=== PATIENT | male | born 1945 ===

== ENCOUNTER 2021-09-12 18:29 | Inpatient (IN) | payer OTHER, MEDICARE ==
[~2021-09-12] VITALS: Ht 180.3 cm; Wt 76.9 kg
[2021-09-12 18:57] LABS: PCO2 Arterial 92.5 mmHg (35-45); pH Blood Arterial 6.85 (7.35-7.45)
[2021-09-12 18:58] LABS: PO2 Arterial >500 mmHg (80-100)
[2021-09-12 19:04] LABS: Source, Urine Clean Catch
[2021-09-12 19:07] LABS: Bilirubin, Urine Neg (Neg); Blood, Urine 2+ (Neg); Glucose Qualitative, Urine 4+ (Neg); Ketones, Urine Neg (Neg); Leukocyte Esterase, Urine Neg (Neg); Nitrite, Urine Neg (Neg); Protein, Urine 3+ (Neg); Urobilinogen, Urine NORM (Normal)
[2021-09-12 19:08] LABS: Hematocrit 44.1 % (37.0-53.0); Hemoglobin 13.7 g/dL (13.5-17.5); Mean Corpuscular HGB 30.7 pg (26.0-34.0); Mean Corpuscular HGB Conc 31.1 g/dL (31.5-36.5); Mean Corpuscular Volume 99 fL (80-100); Mean Platelet Volume 11.8 fL (9.1-12.4); NRBC ABSOLUTE 0.06 K/mm3 (0.00-0.02); NRBC Auto 0.6 /100 WBC (0.0-0.2); Platelet Count 115 K/mm3 (150-400); RDW Coefficient Variation 13.4 % (11.7-14.2); RDW Standard Deviation 48.7 fL (35.1-46.3); Red Blood Cell Count 4.46 M/mm3 (4.30-5.90); White Blood Cell Count 10.45 K/mm3 (4.00-11.30)
[2021-09-12 19:18] LABS: Appearance, Urine Hazy (Clear); Color, Urine Pale Yellow (P-Yellow)
[2021-09-12 19:19] LABS: Amorphous Light (0-Heavy); Bacteria Few /hpf; Mucus Light (0-Heavy); Squamous Epithelial Cells Rare /hpf (Few); White Blood Cells, Urine 0-2 /hpf (0-5)
[2021-09-12 19:20] LABS: International Normalized Ratio 1.16; Prothrombin Time Results 12.1 Sec (9.7-11.5)
[2021-09-12 19:29] LABS: Albumin, Blood 3.3 g/dL (3.4-5.0); Albumin/Globulin Ratio 0.9 (0.8-1.8); Bilirubin, Total 0.4 mg/dL (0.1-1.0); Bun/Creatinine Ratio 14.9 (12.0-20.0); Calcium, Blood 9.2 mg/dL (8.5-10.1); Creatinine, Blood 1.61 mg/dL (0.60-1.20); Globulin, Blood 3.5 g/dL (2.2-4.0); Potassium, Blood 3.8 mmol/L (3.5-5.5); Total Protein, Blood 6.8 g/dL (6.4-8.2)
[2021-09-12 20:03] LABS: PO2 Arterial 274 mmHg (80-100); pH Blood Arterial 7.06 (7.35-7.45)
[2021-09-12 20:04] LABS: PCO2 Arterial 80.9 mmHg (35-45)
[2021-09-12 20:04] LABS: BAND PERCENT MAN 8 % (0-8); BASOPHILS PERCENT MAN 0 % (0-2); EOSINOPHILS ABSOLUTE MAN 0.52 K/mm3 (0.00-0.68); EOSINOPHILS PERCENT MAN 5 % (0-6); LYMPHOCYTES % ATYPICAL MANUAL 7 % (0-0); LYMPHOCYTES ABSOLUTE MAN 5.12 K/mm3 (0.84-5.20); LYMPHOCYTES PERCENT MAN 42 % (21-46); METAMYELOCYTE ABSOLUTE MAN 0.62 K/mm3 (0.00-0.00); METAMYELOCYTE PERCENT MAN 6 % (0-0); MONOCYTES PERCENT MAN 2 % (4-13); NEUTROPHILS ABSOLUTE MAN 3.97 K/mm3 (1.96-9.15); SEG NEUTROPHILS PERCENT MAN 30 % (41-73); TOTAL CELLS COUNTED 100
[2021-09-12 21:10] LABS: Calcium, Ionized (POC) 1.22 mmol/L (1.10-1.46); Chloride (POC) 101 mmol/L (98-108); Creatinine (POC) 1.5 mg/dL (0.8-1.3); Glucose (ISTAT POC) 239 mg/dL (70-99); Hemoglobin (POC) 15.6 g/dL (13.5-17.5); Potassium (POC) 4.7 mmol/L (3.5-5.5); Sodium (POC) 140 mmol/L (135-148); Total CO2 (POC) 25 mmol/L (21-32)
[2021-09-12 22:08] LABS: Base Excess Venous -1.4 mmol/L; Bicarbonate Venous 21.2 mmol/L (24.0-30.0); PCO2 Venous 73.2 mmHg (38-42); PO2 Venous 45.7 mmHg (38-42); pH Blood Venous 7.18 (7.34-7.37)
[2021-09-13 03:17] LABS: PCO2 Arterial 46.5 mmHg (35-45); PO2 Arterial 85.8 mmHg (80-100); pH Blood Arterial 7.35 (7.35-7.45)
--- NOTE | 2021-09-13 03:20 | NUR ---
FAMILY CALL TO SON YUN REGARDING PT STATUS. HYPOTENSION( STARTING SECOND MEDICATIONS TO ELEVATED BP), NONRESPONSIVE. NO QUESTIONS FROM SON. CONT FULL CODE.
[2021-09-13 03:22] LABS: BASOPHILS ABSOLUTE AUTO 0.02 K/mm3 (0.00-0.23); BASOPHILS PERCENT AUTO 0 % (0-2); EOSINOPHILS ABSOLUTE AUTO 0.02 K/mm3 (0.00-0.68); EOSINOPHILS PERCENT AUTO 0 % (0-6); Hematocrit 39.9 % (37.0-53.0); Hemoglobin 13.4 g/dL (13.5-17.5); IMMATURE GRAN ABSOLUTE AUTO 0.04 K/mm3 (0.00-0.10); IMMATURE GRAN PERCENT AUTO 1 % (0-1); LYMPHOCYTES ABSOLUTE AUTO 0.54 K/mm3 (0.84-5.20); LYMPHOCYTES PERCENT AUTO 8 % (21-46); MONOCYTES ABSOLUTE AUTO 0.39 K/mm3 (0.16-1.47); MONOCYTES PERCENT AUTO 6 % (4-13); Mean Corpuscular HGB 30.5 pg (26.0-34.0); Mean Corpuscular HGB Conc 33.6 g/dL (31.5-36.5); Mean Platelet Volume 11.3 fL (9.1-12.4); NEUTROPHILS ABSOLUTE AUTO 6.06 K/mm3 (1.96-9.15); NEUTROPHILS PERCENT AUTO 86 % (41-73); NRBC ABSOLUTE 0.02 K/mm3 (0.00-0.02); NRBC Auto 0.3 /100 WBC (0.0-0.2); Platelet Count 121 K/mm3 (150-400); RDW Coefficient Variation 13.5 % (11.7-14.2); RDW Standard Deviation 45.8 fL (35.1-46.3); Red Blood Cell Count 4.39 M/mm3 (4.30-5.90); White Blood Cell Count 7.07 K/mm3 (4.00-11.30)
[2021-09-13 03:25] LABS: Mean Corpuscular Volume 91 fL (80-100)
[2021-09-13 03:38] LABS: Bilirubin, Total 0.9 mg/dL (0.1-1.0); Calcium, Blood 7.8 mg/dL (8.5-10.1); Creatinine, Blood 1.7 mg/dL (0.60-1.20); Potassium, Blood 4.2 mmol/L (3.5-5.5)
--- NOTE | 2021-09-13 06:12 | NUR ---
[id number] Upon arrival to ICU, Propofol was off. Sedation was stopped to get a baseline neuro exam. Pt did not respond to painful stimili, no cough and gag, and unable to follow any commands. Around 2229, pt started to have harsh jerking movement, seizure like activity Ativan was given and medication stopped this movement. Pt received multiple doses of Ativan overnight when this activity occured. During initial assessment, pt did have brisk unequal pupils, left side was at 5 and right side was at 2. Pt also had a large amount of food still inside mouth, did extensive oral care to get most food particles out to prevent aspiration. Resp: pt remains intubated, ETT now at 25 @ gum, settings are 20/550/40/5. Lung sounds are diminished. secretions vann, thick with food particles. Cardiac: (Evan) was contacted multiple times throughout the night due to hypotension and increasing trop levels. Around 0, MD added levophed to help maintain pt MAP >60. Slowly titrating levophed down to achieve MAP goal. HR 90 - 110's, Sinus Rhythm to Tachycardia. Pulses are obtained via doppler. Pt was initially cold with temp as low as 94.4F - warming blanket now off. Currently dobutamine still at maximum, and levophed has been titrated down to 4 mcg/min. GI/: OG to interminttent suction, 1x BM, abbasi remains patent and draining to gravity. BG's remained in the high 200's Integ: scattered abrasions, excoriated sternum due to CPR, coccyx stg 1 pressure sore (mepilex placed), nose has an pressure sore/scab Infusions: propofol, levophed, dobutamine, normal saline, heparin
--- NOTE | 2021-09-13 08:47 | NUR ---
Echocardiogram completed.
--- NOTE | 2021-09-13 11:17 | NUR ---
CARE ASSUMED OF PT AT 0700. PT SEDATED ON PROPOFOL AT 20MCG FOR CONTROL OF SEIZURE ACTIVITY. PT IS ON MECH VENT. AC: 20/550/40%/5. CO2 READING LOW, DR SUMNER IN THIS AM AND GIVEN FULL REPORT; DR SUMNER DECREASED TV TO 450. PT DOES NOT HAVE ANY PURPOSEFUL MOVEMENT. PT HAS MYOCLONIC LIKE JERKING. NO REACTION TO PAIN OTHER THAN INCREASED JERKING. NO GAG/SWALLOW/COUGH. PUPILS 2/3MM REACTIVE. ABSENT PLANTAR REFLEX. PROPOFOL PLACED ON HOLD FOR NEURO ASSESSMENT. WITHIN 15MIN JERKING SIGNIFICANTLY INCREASED, EYES ALSO OPEN W JERKING BUT DO NOT TRACK. DR SUMNER AT BEDSIDE TO EVALUATE PT OFF OF SEDATION. AT THIS TIME PT HAD APPROX 200CC THICK DARK BROWN EMESIS. OGT TUBE REMOVED IT WAS SUSPECTED TO BE CLOGGED. IT HAD BEEN TO LIS. NEW 18F OGT PLACED. OGT ADVANCED ABOUT 10CM AFTER CXR. 400CC DARK BROWN STOMACH CONTENT TO SX CANISTER. DOBUTAMINE AT 20MCG, LEVOPHED AT 4MCG, DECREASED TO 2MCG; TO KEEP MAP >[address] CHRISTINA AT BEDSIDE THIS AM AND GIVEN FULL REPORT. CRITICAL HIGH TROPONIN RESULTS GIVEN TO DR CHRISTINA. ECHO COMPLETED THIS AM. HEP GTT AT 12UNITS. NS AT 100CC/HR. PROPOFOL RESUMED AFTER EMESIS; PT'S HEART RATE ALSO HAD INCREASED FROM 110 TO 130 OFF OF PROPOFOL. LIVESTOCK BREEDER AT BEDSIDE NOW.
--- NOTE | 2021-09-13 11:30 | NUR ---
Pal Care referral received on admit to hospital. EMR reviewed and case conf with staff. Pt with EEG pending due to indications of anoxic brain injury. Sponge Fisherman to review results of EEG with family. Personal Computer Network Engineer has updated family on current status, concerns and plan of care at this time, per notes. Pal Care to reamain available for advanced care planning and s/s management as indicated.
--- NOTE | 2021-09-13 13:59 | NUR ---
Case conference with nursing in ICU. Son in [place] has been in contact and receiving updates. EEG done but results may not be available until tomorrow. Reviewed plan and will remain available.
--- NOTE | 2021-09-13 14:30 | NUR ---
EEG COMPLETE, MAY POSSIBLE BE READ TONIGHT PER TECH. ATIVAN 1MG GIVEN AT END OF EEG JERKING WAS SEVERE AND TECH UNABLE TO COMPLETE END OF EEG D/T SEVERE JERKING MOVEMENT, PT ALSO ALARMING VENT; HIGH PRESSURES. HEART RATE 130'S. NYSTAGMUS PRESENT, SEVERE UPWARD AND DOWNWARD GAZE NOTED. DR SUMNER UPDATED. CENTRAL LINE CONT'S TO OOZ. HEPARIN GTT WAS DECREASED TO 11UNITS. DOPUTAMINE REMAINS AT 20MCG. LEVOPHED AT 2MCG.
[2021-09-13 15:36] LABS: PCO2 Arterial 41.5 mmHg (35-45); PO2 Arterial 69.3 mmHg (80-100); pH Blood Arterial 7.38 (7.35-7.45)
[2021-09-13 17:14] LABS: Hematocrit 37.2 % (37.0-53.0); Hemoglobin 12.9 g/dL (13.5-17.5); Mean Corpuscular HGB 30.9 pg (26.0-34.0); Mean Corpuscular HGB Conc 34.7 g/dL (31.5-36.5); Mean Corpuscular Volume 89 fL (80-100); Mean Platelet Volume 11.4 fL (9.1-12.4); Platelet Count 91 K/mm3 (150-400); RDW Coefficient Variation 13.9 % (11.7-14.2); RDW Standard Deviation 45.5 fL (35.1-46.3); Red Blood Cell Count 4.17 M/mm3 (4.30-5.90); White Blood Cell Count 7.42 K/mm3 (4.00-11.30)
[2021-09-13 17:37] LABS: BAND PERCENT MAN 46 % (0-8); BASOPHILS PERCENT MAN 0 % (0-2); EOSINOPHILS PERCENT MAN 0 % (0-6); LYMPHOCYTES ABSOLUTE MAN 0.74 K/mm3 (0.84-5.20); LYMPHOCYTES PERCENT MAN 10 % (21-46); METAMYELOCYTE ABSOLUTE MAN 0.07 K/mm3 (0.00-0.00); METAMYELOCYTE PERCENT MAN 1 % (0-0); MONOCYTES ABSOLUTE MAN 0.22 K/mm3 (0.16-1.47); MONOCYTES PERCENT MAN 3 % (4-13); MYELOCYTE ABSOLUTE MAN 0.07 K/mm3 (0.00-0.00); MYELOCYTE PERCENT MAN 1 % (0-0); SEG NEUTROPHILS PERCENT MAN 39 % (41-73); TOTAL CELLS COUNTED 100
--- NOTE | 2021-09-13 18:37 | NUR ---
DR CHRISTINA CALLED AT 1600 AND GIVEN UPDATE/TROPONIN RESULTS. DOBUTAMINE TO BE TITRATED DOWN, KEEP MAP >65, MAY INCREASE LEVOPHED NEEDED; PER DR SUMNER. INSULIN GTT STARTED AT 2UNITS AND REMAINS AT 2UNITS. SPUTUM SENT; DARK BROWN/RETANA. LR STARTED AT 75CC/HR, NS AT TKO. MAG 2GM INFUSING. DOPUTAMINE NOW AT 12MCG, LEVOPHED AT 4MCG. DR SUMNER UPDATED. PT'S SON YUN UPDATED THIS AM AND THIS EVENING. PT'S SON DEREK UPDATED TODAY WELL. NO NEURO CHANGES. PT CONT'S TO BREATH OVER VENT, NO PURPOSEFUL MOVEMENT NOTED. OCC MYOCLONIC LIKE JERKING NOTED, WORSE W STIMULATION. PROPOFOL REMAINS AT 20MCG. ATIVAN 1MG GIVEN TWICE THIS SHIFT FOR INCREASED RESP W PEAK ALARM, DESATS 89-90%, INCREASED HT RATE; RESOLVED W ATIVAN.
[2021-09-14 03:49] LABS: pH Blood Arterial 7.42 (7.35-7.45)
[2021-09-14 03:55] LABS: Albumin, Blood 2.6 g/dL (3.4-5.0); Albumin/Globulin Ratio 0.8 (0.8-1.8); Bilirubin, Total 0.6 mg/dL (0.1-1.0); Bun/Creatinine Ratio 16.8 (12.0-20.0); Calcium, Blood 7.6 mg/dL (8.5-10.1); Creatinine, Blood 1.96 mg/dL (0.60-1.20); Globulin, Blood 3.3 g/dL (2.2-4.0); Potassium, Blood 3.4 mmol/L (3.5-5.5); Total Protein, Blood 5.9 g/dL (6.4-8.2)
--- NOTE | 2021-09-14 05:58 | NUR ---
SHIFT SUMMARY: Pt remains intubated and sedated, with no response to verbal and painful stimuli. Still doing extensive oral care and still getting chunks of food out of mouth. Pupils are better, left side still slightly bigger than right, both reacting to light. Ventilator setting remains unchanged overnight, AC/VC(+), settings at 20/450/40%/5. No cough or gag. Lung sounds are diminished. Pt did have an episode of jerking and Ativan was administered immediately which stopped jerking. BP stable, able to titrate Dobutamine off around 2300, Levophed is titrated down to 3 mcg/min. Noticed a small bump starting to rise from pt.'s sternum area - bump was not present at beggining of night custodian. Afebrile. OGT remains on intermittent suction, no output overnight but starting to suction out small amounts of blood clot from OG. Insulin drip is still infusing. No BM. Taylor remains patent and draining to gravity. Skin remains unchanged besides new bump on sternum. q2h turns. Infusions: propofol, heparin, lactated ringers, levophed and insulin. Family: there has been some disagreement between family regarding. pt's wishes and care plan/ treatment. Educated family regarding pt condition, treatments and visitor policy.
--- NOTE | 2021-09-14 09:31 | NUR ---
CARE OF PT ASSUMED AT 0700. PT ON [facility] VENT AC/VC+ 20/450/40%/5. PROPOFOL AT 20MCG. LEVOPHED AT 2MCG AND PLACED ON SB AT 0730 MAP >65. INSULIN GTT AT 2UNITS W BS AROUND 200. HEP GTT AT 9UNITS. PROPOFOL PLACED ON SB FOR NEURO ASSESSMENT. NO PURPOSEFUL MOVEMENT NOTED. ABSENT COUGH/GAG/SWALLOW/PLANTAR/CORNEAL REFLEX. LEFT LEG DID FLEX SLIGHTLY UP WHEN STIMULATED. PUPILS ARE EQUAL AND REACTIVE 3MM. +DOLLS EYES, NO NYSTAGMUS. WILL LEAVE PROPOFOL OFF TOLERATED. DR SUMNER IN TO EVALUATE PT THIS AM. VENT SETTINGS CHANGED TO SPONT 12/7, FIO2 50%. AROUND 0920 BREATHING BECAME VERY LABORED, PT USING ABD/ACCESSORY MUSCLES, OCC TV BELOW 150, HYPERTENSIVE, INCREASE IN HEART RATE. RT CALLED. PRESSURE INCREASED TO 20, THI SEEMED TO RESOLVE ISSUES. WILL CONT TO MONITOR CLOSELY AND NOTIFY DR SUMNER.
--- NOTE | 2021-09-14 11:00 | NUR ---
Family spokesperson is son, Alexander [phone], who resides with pt. Pal Care visit in ICU. RN and RT at bedside. Update on current status and concerns received. Pt has four children and there has been some disagreement regarding goals/plan for pt among four children. I called Alexander, the only local family. He states he has always lived with his dad and that he is the family spokesperson to receive updates from Drs and staff. I asked that he be available today to receive a call from the Dr to review his dad's EEG results with him today. I asked him to think on conversations with his dad, especially surrounding his recent heart issues and open heart surgery to help us determine what his dad's wishes would be in his current situation. I gave him a brief update in re: to no changes in neuro status or signs of return of neuro function at this time. Alexander plans to relay Dr's information to siblings through a video converence so they can all discuss and decide on wishes for care. Palliative care will remain available to answer family questions or assist with determining goals of care after EEG results shared with them.
--- NOTE | 2021-09-14 12:27 | NUR ---
HEPARIN GTT INCREASED TO 10UNITS. INSULIN GT AT 2UNITS. PROPOFOL REMAINS OFF. PRESSORS OFF. PT TREMORS/SHIVERS W STIMUATION, NO OTHER CHANGES. RESP STABLE ON PS 15/7, FIO2 50%.
--- NOTE | 2021-09-14 15:23 | NUR ---
CODE STATUS clarification with pt's son, Alexander. T/c to son after EEG reviewed with him per . I requested that we review code status in the event that pt had cardiac arrest or fatal arrythmias while awaiting family from out of states arrival. Alexander states he wants his dad to remain a FULL CODE until family memebers have been allowed to say their good byes. I cautioned him that future resuscitation efforts may not be successful and if sustained for a long time staff may request cessation of CPR. Son verbalized understanding.
--- NOTE | 2021-09-14 16:01 | NUR ---
PT CONTINUES TO HAVE TREMOR TO RIGHT ARM UPPER BODY W STIMUATION ONLY. NO OTHER NEURO CHANGES. OOZING CONTINUES TO CENTRAL LINE. DRSG CHANGED TODAY AND WILL NEED TO BE CHANGED AGAIN SOON. MOUTH CONT TO OOZE. DR SUMNER AT BEDSIDE. PEEP DECREASED TO 5.
--- NOTE | 2021-09-14 18:48 | NUR ---
HEPARIN GTT INCREASED TO 11 UNITS PER PHARMACY.
[2021-09-15 04:56] LABS: Hematocrit 30.7 % (37.0-53.0); Hemoglobin 10.6 g/dL (13.5-17.5); Mean Corpuscular HGB 30.7 pg (26.0-34.0); Mean Corpuscular HGB Conc 34.5 g/dL (31.5-36.5); Mean Corpuscular Volume 89 fL (80-100); Mean Platelet Volume 11.2 fL (9.1-12.4); Platelet Count 94 K/mm3 (150-400); RDW Coefficient Variation 14.1 % (11.7-14.2); RDW Standard Deviation 46.1 fL (35.1-46.3); Red Blood Cell Count 3.45 M/mm3 (4.30-5.90); White Blood Cell Count 6.49 K/mm3 (4.00-11.30)
[2021-09-15 05:06] LABS: Bun/Creatinine Ratio 22.2 (12.0-20.0); Calcium, Blood 7.9 mg/dL (8.5-10.1); Creatinine, Blood 1.67 mg/dL (0.60-1.20); Potassium, Blood 3.4 mmol/L (3.5-5.5)
[2021-09-15 05:12] LABS: International Normalized Ratio 0.99; Prothrombin Time Results 10.4 Sec (9.7-11.5)
--- NOTE | 2021-09-15 06:02 | NUR ---
SHIFT SUMMARY: Pt remains intubated, unable to follow commands, no movement to painful stimuli. When pt stimulated for oral care/turns, pt starts having severe spasticity on right upper ext. Spasticity stops as soon as pt is not being stimulated. Has been off sedation since day shift. PERRLA @ 5, equal. Pt tolerated spontenous setting all night. Lung sounds are diminished and more coarse on the right. Still small amount of food after oral care, some bleeding on the right side of mouth with oral care. Insulin drip now off and transitioned to subQ. All pressors remained off overnight. Central line still bleeding but not a significant amount, changed the dressing 1x overnight.
[2021-09-15 06:43] LABS: BAND PERCENT MAN 20 % (0-8); BASOPHILS PERCENT MAN 0 % (0-2); EOSINOPHILS PERCENT MAN 0 % (0-6); LYMPHOCYTES ABSOLUTE MAN 0.38 K/mm3 (0.84-5.20); LYMPHOCYTES PERCENT MAN 6 % (21-46); MONOCYTES ABSOLUTE MAN 0.32 K/mm3 (0.16-1.47); MONOCYTES PERCENT MAN 5 % (4-13); NEUTROPHILS ABSOLUTE MAN 5.77 K/mm3 (1.96-9.15); SEG NEUTROPHILS PERCENT MAN 69 % (41-73); TOTAL CELLS COUNTED 100
--- NOTE | 2021-09-15 07:21 | NUR ---
TOOK OVER CARE OF PT AT 0710 09/15/21. PT ON VENTILATOR WITH PS 15/5 50% FiO2. NO DRIPS CURRENTLY. SEE FILED VITALS.
--- NOTE | 2021-09-15 09:00 | NUR ---
DISCUSSED WITH POTASSIUM LEVEL OF 3.4
--- NOTE | 2021-09-15 09:43 | NUR ---
PROVIDER NOTIFIED OF POSITIVE SPUTUM CULTURE RESULTS.
--- NOTE | 2021-09-15 16:23 | NUR ---
SUMMARY NEURO: PT RESPONDED TO PAIN WITH ALL EXTREMETIES AT BEGIINING OF SHIFT BUT HAS BEEN UNRESPONSIVE ON FOLLOWING ASSESSMENTS. ATIVAN PRN WAS GIVEN DUE TO INCREASED JERKING MOVEMENTS. JERKING MOVEMENTS SEEN STRONGEST IN RUE. PT HAS A RYTHMIC EYE GAZE AND RYTHMIC CORNEAL MOVEMENT, OTHERWISE NEGATIVE FOR CORNEAL RESPONSE. PT PUPILS HAVE BEEN BETWEEN 5/6 AND ARE BRISK. LEFT SIDE SLIGHTLY LARGER THAN RIGHT. LUNGS: PT ON PS 15/5 50% Fi02. FOOD PARTICLES STILL BEING REMOVED WHILE ETT AND SUBGLOTTIC SUCTIONING. PT HAS BEEN TACHYPNEIC 30'S-40'S DURING THIS SHIFT WITH LITTLE IMPROVMENT FROM ATIVAN. PT WAS TRIALED ON VC BUT IT ONLY INCREASED PT'S AGITATION. PT SPUTUM CULTURE CAME BACK POSITIVE FOR KLEBSIELLA AND E. COLI. MARTINEZ DRAINAGE FROM ETT AND PINK FROM ORAL SUCTIONING. PT INTERMITTENTLY WHEEZY THROUGHOUT THE DAY. CARDIAC: PT TACHY 100'S-120'S AND SYSTOLIC GREATER THAN 180'S. PULSES PRESENT. SWELLING ON PT'S CHECT FROM TRAUMA OF CPR. GI/: NO BOWEL MOVEMENT THIS SHIFT BUT URINE OUTPUT INCREASING TO 75-100 ML/HR. SKIN: REDNESS ON BOTTOM HAS RESOLVED, OLD SCATTERED ABRASIONS STILL PRESENT. 5MG METOPROLOL PUSHES GIVEN NEEDED
--- NOTE | 2021-09-15 17:51 | NUR ---
SON, DAUGHTER AND GRANDSON IN ROOM WITH PATIENT. SPOKE WITH DR. SUMNER AND PALLIATIVE CARE ABOUT PROGNOSIS OF PT.
--- NOTE | 2021-09-15 21:19 | NUR ---
ASSUMED CARE RECEIVED REPORT FROM AMAURI ELIZABETH AT 1900. FAMILY- DAUGHTER, SON, AND GRANDSON, AT BEDSIDE DECIDING ON HOW TO PROCEED WITH CARE. PT IS UNREPONSIVE AT THIS TIME, NO RESPONSE TO PAIN. RUE>LUE HAS JERKING LIKE MOVEMENTS, INCREASES WITH STIMULATION. EYES HAVE DISCONJUGATE AND DOWNWARD GAZE, LEFT EYE IS TURNED INWARD. RHYTHMIC/NYSTAGMUS LIKE MOVEMENT, NO CORNEAL REFLEX. FEBRILE AT 99.4. VENT SPONTANEOUS 15/5, FIO2 50%, SPO2 97%. LUNGS ARE VERY DIMINISHED T/O, SHALLOW RESPIRATIONS, TACHYPNEIC IN LOW 30'S. HR IS SINUS TACH TO SINUS RHYTHM, 90-100'S. BP IS HYPERTENSIVE WITH SBP IN 180'S DESPITE PRN METOPROLOL IV. OG TO LIS, ORDERS TO START TUBE FEED, GLUCERNA 1.2 WITH GOAL OF 55ML/HR. TEMP DOVE DRAINING TO GRAVITY, CLEAR YELLOW URINE. CENTRAL LINE TO RIGHT IJ, INFUSING WITH LR AT 75ML/HR AND TKO. CHRISTINE PG IN PLACE, SL. ORDERS REVIEWED, WILL TREAT PRESCRIBED.
--- NOTE | 2021-09-15 23:08 | NUR ---
CALL TO DR. NOVAK RE: HYPERTENSIVE BP 180'S/100'S. ORDERS FOR HYDRALAZINE 10MG Q6H PRN FOR SYSTOLIC >160.
--- NOTE | 2021-09-16 06:17 | NUR ---
PT REMAINS INTUBATED AND UNRESPONSIVE. PLANTAR REFLEX MINIMALLY INTACT TO RLE, AND COUGH REFLEX ONLY, NO PURPOSEFUL MOVEMENTS. EYES REMAIN UNCHANGED WITH DOWNWARD GAZE AND RHYTHMIC MOVEMENTS, PUPILS EQUAL AND REACTIVE. RUE CONTINUES WITH TREMULOUS MOVEMENTS. PRN LORAZEPAM GIVEN PER EMAR. VENT SETTINGS UNCHANGED, SPONTANEOUS WITH PRESSURE SUPPORT OF 15/5, FI02 50%, SPO2>94%, RR 30-40'S AT TIMES. LUNGS ARE NOW COARSE T/O AND SOMEWHAT IMPROVE WITH ETT SUCTION, HE CONTINUES WITH COPIOUS ORAL SECRETIONS. FEBRILE, TMAX 99.6. HR IS SINUS TACH, RATE 100-110'S. BP REMAINS HYPERTENSIVE, BUT IMPROVED WITH PRN HYDRALAZINE. OG WITH GLUCERNA 1.2 TF AT 10ML/HR, GOAL RATE OF 55/ML. BT ARE HYPOACTIVE. DOVE PATENT, DRAINING LIGHT YELLOW URINE, 1150ML OUT THIS SHIFT. LR INFUSING AT 75ML/HR AND TKO TO RIGHT IJ. CHRISTINE PG REMAINS SL. BED BATH COMPLETE THIS SHIFT, ONLY SMALL SMEAR CLEANED. WILL REPORT TO ONCOMING SHIFT.
--- NOTE | 2021-09-16 07:37 | NUR ---
took over care of pt at 0705 09/16/21. PT ON VENTILATOR PS 155 50% FiO2. SEE VITALS FILED.
[2021-09-16 09:14] LABS: BASOPHILS ABSOLUTE AUTO 0.02 K/mm3 (0.00-0.23); BASOPHILS PERCENT AUTO 0 % (0-2); EOSINOPHILS PERCENT AUTO 0 % (0-6); Hematocrit 32.5 % (37.0-53.0); Hemoglobin 11.2 g/dL (13.5-17.5); IMMATURE GRAN ABSOLUTE AUTO 0.07 K/mm3 (0.00-0.10); IMMATURE GRAN PERCENT AUTO 1 % (0-1); LYMPHOCYTES ABSOLUTE AUTO 0.38 K/mm3 (0.84-5.20); LYMPHOCYTES PERCENT AUTO 3 % (21-46); MONOCYTES ABSOLUTE AUTO 0.46 K/mm3 (0.16-1.47); MONOCYTES PERCENT AUTO 4 % (4-13); Mean Corpuscular HGB 30.6 pg (26.0-34.0); Mean Corpuscular HGB Conc 34.5 g/dL (31.5-36.5); Mean Corpuscular Volume 89 fL (80-100); Mean Platelet Volume 11.3 fL (9.1-12.4); NEUTROPHILS ABSOLUTE AUTO 10.36 K/mm3 (1.96-9.15); NEUTROPHILS PERCENT AUTO 92 % (41-73); Platelet Count 126 K/mm3 (150-400); RDW Coefficient Variation 14.3 % (11.7-14.2); RDW Standard Deviation 45.9 fL (35.1-46.3); Red Blood Cell Count 3.66 M/mm3 (4.30-5.90); White Blood Cell Count 11.29 K/mm3 (4.00-11.30)
[2021-09-16 09:49] LABS: Bun/Creatinine Ratio 27.5 (12.0-20.0); Calcium, Blood 7.9 mg/dL (8.5-10.1); Creatinine, Blood 1.53 mg/dL (0.60-1.20); Potassium, Blood 2.8 mmol/L (3.5-5.5)
--- NOTE | 2021-09-16 16:58 | NUR ---
Met with pt's son and daughter at the bedside for discussion on goals of care. Initially, both verbalized anger and disbelief in the patient's current prognosis and demanded another EEG. Provided therapeutic listening, and after some time, they calmed considerably. I provided each with "Hard Choices for [place] People", and gave them some space and time to read. When I returned, I asked them to join me in a conference room, and we talked in depth about the comfort care process, attempting to normalize and remove fear from the process. They did at that time agree to change pt's code status to DNR, and they state they will consider comfort care.
--- NOTE | 2021-09-16 16:58 | NUR ---
SUMMARY NEURO: PT RESPONDED TO PAIN WITH ALL EXTREMETIES AT BEGIINING OF SHIFT BUT HAS BEEN UNRESPONSIVE ON FOLLOWING ASSESSMENTS. ATIVAN PRN WAS GIVEN DUE TO INCREASED JERKING MOVEMENTS. JERKING MOVEMENTS SEEN STRONGEST IN RUE. PT HAS A RYTHMIC EYE GAZE AND RYTHMIC CORNEAL MOVEMENT, OTHERWISE NEGATIVE FOR CORNEAL RESPONSE. PT PUPILS HAVE BEEN BETWEEN 5/6 AND ARE BRISK. LEFT SIDE SLIGHTLY LARGER THAN RIGHT. LUNGS: PT ON PS 15/5 50% Fi02. FOOD PARTICLES STILL BEING REMOVED WHILE ETT AND SUBGLOTTIC SUCTIONING. PT HAS BEEN TACHYPNEIC 30'S-40'S DURING THIS SHIFT WITH LITTLE IMPROVMENT FROM ATIVAN. MARTINEZ DRAINAGE FROM ETT AND PINK FROM ORAL SUCTIONING. PT INTERMITTENTLY WHEEZY THROUGHOUT THE DAY. CARDIAC: PT TACHY 100'S-130'S AND SYSTOLIC GREATER THAN 180'S. PULSES PRESENT. SWELLING ON PT'S CHECT FROM TRAUMA OF CPR. GI/: NO BOWEL MOVEMENT THIS SHIFT BUT URINE OUTPUT INCREASING TO 75-100 ML/HR. SKIN: REDNESS ON BOTTOM HAS RESOLVED, OLD SCATTERED ABRASIONS STILL PRESENT. 5MG METOPROLOL PUSHES GIVEN NEEDED
--- NOTE | 2021-09-16 22:46 | NUR ---
ASSUMED CARE/COMFORT CARE RECEIVED REPORT FROM AMAURI HO AT 1900. PT REMAINS INTUBATED ON SPONTANEOUS 19/12, FIO2 50%. PLAN FOR FAMILY TO RETURN THIS EVENING AND CHANGE PT TO COMFORT CARE AND EXTUBATE. SEE SHIFT ASSESSMENT FOR FULL ASSESSMENT. ORDERS REVIEWED, WILL TREAT PRESCRIBED. 2149: SPOKE WITH YUN, SON, AND STATES OTHER SIBLINGS ARE ON THEIR WAY TO INITIATE COMFORT CARE. PLAN IS TO EXTUBATE WITH FAMILY AT BEDSIDE DURING PASSING. 2199: SON AND DAUGHTER AT BEDSIDE. COMFORT CARE ORDERS INITIATED. MEDICATED WITH ATIVAN AND DILAUDID PER EMAR, PT EXTUBATED AT 2225. FAMILY REMAINS AT BEDSIDE AT THIS TIME. WILL MEDICATE PER ORDERS TO ENSURE COMFORT. CURRENT HR IS ST IN 120'S, SPO2 59%.
--- NOTE | 2021-09-17 05:55 | NUR ---
REPORT GIVEN TO ARNEL AND PT TRANSFERRED TO ROOM 326 @ 1603. MEDICATED WITH PRN DILAUDID AND ATIVAN FOR PT COMFORT PER EMAR. SON AND DAUGHTER REMAIN AT BEDSIDE AND WENT TO NEW ROOM.
--- NOTE | 2021-09-17 06:28 | NUR ---
PATIENT ARRIVED TO ROOM 326 FROM ICU WITH FAMILY. PATIENT IS NONRESPONSIVE AND DOESN'T APPEAR TO BE IN PAIN. HE IS HAVING ABBIE-ZAMORA RESPIRATIONS.
--- NOTE | 2021-09-17 14:59 | NUR ---
Made a visit to pt this am. He is actively dying, agonal breathing noted. No s/s of distress or pain noted. His son was at bedside this am, and states the bedside RN has been very helpful and attentive to pt's needs. He also states he saw the doctor as well this morning. Pt appears relaxed. No longer showing signs of seizures as previously, when he was on ventilator. Now, he is using prn 02 via N/C. No needs at this time.
--- NOTE | 2021-09-17 15:59 | NUR ---
Family requesting PC visit. Arrived to Pt's room. Pt resting in bed and is non verbal. Tremors noted. Family at bedside. Offered therapeutic listening and answered questions. Family expresses appreciation and report no other concerns at this time.
--- NOTE | 2021-09-17 18:31 | NUR ---
SHIFT SUMMARY PT IS STILL RESTING COMFORTABLY, FAMILY IS STILL IN THE ROOM. MEDICATED FOR PAIN PER MAR.
--- NOTE | 2021-09-18 04:49 | NUR ---
Pt provided PRN Ativan and Roxicodone for seizures and anxiety. Pt in room surrounded by family.
--- NOTE | 2021-09-18 04:54 | NUR ---
RN requested in room by family regarding pt's status. Upon arrival RN inspected pt. PT was having agonal breaths and appeared to be in pain. Dilauded given at 2218 With relief. Family confirmed that pt seemed to be more relaxed.
--- NOTE | 2021-09-18 06:06 | NUR ---
Patient resting in bed surrounded by family. PRN given to pt x2 with resolve, pt had decreased heart rate and a slower breathing rythem. Pt as well as family are sleeping, PT on comfort cares and continues to have shallow breaths and once in a while agonal breaths.
--- NOTE | 2021-09-18 10:27 | NUR ---
FAMILY AT BEDSIDE PATIENT NOT BREATHING. LISTENED FOR PULSE FOR 2 MINUTES NO PULSE. CALLED SATYA BAUGH SHE VERIFIED NO BREATHING NO PULSE. TOD IS 1020. FAMILY REQUESTING SPIRITUAL CARE NURSING SCALEHOUSE ATTENDANT NOTIFIED AND SHE WILL CALL THEM. CHARGE HARI GONZALEZ AND [employer] NOTIFIED THEY WILL START PAPERWORK. NOTIFIED VIA TELEPHONE. MARCUS JOHNSON RN
--- NOTE | 2021-09-18 11:41 | NUR ---
Spiritual Care Call Back Pt. had prior to callback. Daughter and Son are present and requested spiritual care. Facilitated life review, and established rapport with family. Prayed for pt. and family. Sat with them until they were prepared to leave. [facility] is the families choice for arrangments. Family verbalized gratitude for the care of their father. Including EMT rescue efforts, hospital staff, and spiritual care.
== END 2021-09-18 10:20 ==
LOC: ER 18:29 → ICUW 20:58 → EDBD 20:58 → ICUW 21:30 → MEDS 09-17 05:48
PROVIDERS: Emergency Medicine; Internal Medicine Critical Care Medicine; Nurse Practitioner Acute Care; ADMIT Internal Medicine
PROC: 02HV33Z Insertion of Infusion Device into Superior Vena Cava, Percutaneous Approach (ICD-10-PCS; principal; 2021-09-13)
PROC: 5A12012 Performance of Cardiac Output, Single, Manual (ICD-10-PCS; 2021-09-13)
PROC: 3E033XZ Introduction of Vasopressor into Peripheral Vein, Percutaneous Approach (ICD-10-PCS; 2021-09-13)
PROC: 0BH17EZ Insertion of Endotracheal Airway into Trachea, Via Natural or Artificial Opening (ICD-10-PCS; 2021-09-13)
PROC: 5A1955Z Respiratory Ventilation, Greater than 96 Consecutive Hours (ICD-10-PCS; 2021-09-13)
DX: I21.4 Non-ST elevation (NSTEMI) myocardial infarction (principal); J96.02 Acute respiratory failure with hypercapnia; J69.0 Pneumonitis due to inhalation of food and vomit; J96.01 Acute respiratory failure with hypoxia; G93.1 Anoxic brain damage, not elsewhere classified; Z66 Do not resuscitate; Z51.5 Encounter for palliative care; J44.1 Chronic obstructive pulmonary disease with (acute) exacerbation; N17.9 Acute kidney failure, unspecified; R74.01 Elevation of levels of liver transaminase levels; R00.0 Tachycardia, unspecified; I11.0 Hypertensive heart disease with heart failure; I25.10 Atherosclerotic heart disease of native coronary artery without angina pectoris; K21.9 Gastro-esophageal reflux disease without esophagitis; E11.9 Type 2 diabetes mellitus without complications; I46.9 Cardiac arrest, cause unspecified; R57.0 Cardiogenic shock; I45.10 Unspecified right bundle-branch block; I50.810 Right heart failure, unspecified; E66.9 Obesity, unspecified; Z68.25 Body mass index [BMI] 25.0-25.9, adult; Z95.4 Presence of other heart-valve replacement; Z95.1 Presence of aortocoronary bypass graft; Z95.5 Presence of coronary angioplasty implant and graft
CPT/HCPCS: 36415; 36556; 36600; 51702; 70450; 71045; 71260; 80047; 80048; 80053; 81001; 82803; 82947; 83735; 83880; 84132; 84145; 84484; 85014; 85025; 85610; 85730; 87070; 87077; 87186; 87205; 92950; 93005; 93010; 93306; 94003; 94640; 95819; 96365-59; 96366-59; 96368; 96375-59; 99291-25; A9270; C1751; C9113; J0360; J1170; J1250; J1644; J1650; J1815; J1953; J2060; J2250; J2270; J2405; J2543; J2704; J2920; J2930; J3475; J3480; J7030; J7050; J7060; J7120; Q9967